=== PATIENT | female | born 2000 | race Caucasian/White ===

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

== ENCOUNTER 2020-11-06 01:35 | Emergency (ER) | payer BC, OTHER ==
--- NOTE | 2020-11-06 02:09 | EDM.PDOC ---
ED HPI GENERAL MEDICAL PROBLEM - General Chief Complaint: ENT Problem Stated Complaint: Severe throat pain Time Seen by Provider: 11/06/20 01:50 Source of Information: Reports: Patient History Limitations: Reports: No Limitations - History of Present Illness INITIAL COMMENTS - FREE TEXT/NARRATIVE: Patient presents to the ED at 1:30 am for sore throat/ She states that she started to have a runny nose sore throat and nasal congestion two days ago. She took some over the counter mucinex for it. She thought it might be allergies as she gets those. SHe has been eating and drinking normally. 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 Tonight she was in bed and she felt that the throat was becoming more sore. No fevers, and still able to swallow. Did not take anything for the pain because she did not have anything. living locally this summer but attends college here. Had covid in May, no vaccinations. presents afebrile with a friend for sore throat Onset Date: 11/03/20 Duration: Constant Location: Reports: Neck Quality: Reports: Ache Severity: Moderate Improves with: Reports: None Worsens with: Reports: None Associated Symptoms: Reports: Other (runny and stuffy nose) Treatments [employer]: Reports: Other (see below) (none today) Other Treatments [employer]: Mucinex, yesterday throat Pain Score (Numeric/FACES): 6 - Related Data Allergies Allergy/AdvReac Type Severity Reaction Status Date / Time No Known Allergies Allergy Verified 11/06/20 01:54 Home Meds: Home Meds Spironolactone 50 mg PO BID 11/06/20 [History] Past Medical History - Past Health History Medical/Surgical History: Denies Medical/Surgical History Social & Family History - Tobacco Use Tobacco Use Status *Q: Never Tobacco User Tobacco Use Within Last Twelve Months: No - Recreational Drug Use Recreational Drug Use: No Drug Use in Last 12 Months: No ED ROS ENT - Review of Systems Review Of Systems: See Below Constitutional: Denies: Fever, Chills, Weakness, Fatigue, Decreased Appetite HEENT: Reports: Rhinitis, Throat Pain, Throat Swelling. Denies: Ear Discharge, Ear Pain, Eye Discharge, Eye Pain, Nosebleed, Nose Pain, Sinus Problem Respiratory: Reports: No Symptoms. Denies: Shortness of Breath, Cough Cardiovascular: Reports: No Symptoms. Denies: Chest Pain, Claudication, Dyspnea on Exertion Endocrine: Reports: No Symptoms GI/Abdominal: Reports: No Symptoms. Denies: Abdominal Pain, Anorexia, Diarrhea, Decreased Appetite, Nausea, Vomiting : Reports: No Symptoms. Denies: Discharge, Dysuria, Frequency Musculoskeletal: Reports: No Symptoms Skin: Reports: No Symptoms ED EXAM, ENT - Physical Exam Exam: See Below Exam Limited By: No Limitations General Appearance: Alert, WD/WN, No Apparent Distress Eye Exam: Bilateral Eye: EOMI, Normal Inspection, PERRL Ears: Normal External Exam, Normal Canal, Hearing Grossly Normal, Normal TMs. No: TM Bulging, TM Dullness, TM Erythema Nose: Clear Rhinorrhea, Other (mucosal swelling, no sinus tenderness to palpation over the frontal or maxillary sinuses). No: Nasal Tenderness Mouth/Throat: Normal Inspection, Normal Gums, Normal Teeth, Pharyngeal Erythema. No: Dry Mucous Membrane, Throat Swelling, Tongue Swelling, Tonsillar Exudates, Tonsillar Swelling, Uvular Deviation, Uvular Edema Head: Atraumatic Neck: Supple, Full Range of Motion, Lymphadenopathy (L), Lymphadenopathy (R) Respiratory/Chest: No Respiratory Distress, Lungs Clear, Normal Breath Sounds Cardiovascular: Normal Peripheral Pulses, Regular Rate, Rhythm, No Murmur Back: Normal Inspection, Full Range of Motion. No: CVA Tenderness (L), CVA Tenderness (R) Extremities: Normal Inspection, Normal Range of Motion, No Pedal Edema Neurological: Alert, Oriented, CN II-XII Intact Course - Vital Signs Last Recorded V/S: Last Vital Signs Temp 36.8 C 11/06/20 01:35 Pulse 86 11/06/20 01:35 Resp 16 11/06/20 01:35 BP 110/73 11/06/20 01:35 Pulse Ox - Orders/Labs/Meds Orders: Active Orders 24 hr Category Date Time Status STREP A BY PCR [[facility]] Stat Lab 11/06/20 02:01 Ordered - Re-Assessments/Exams Free Text/Narrative Re-Assessment/Exam: 11/06/20 02:22 Patient has minimal erythema. will check a strep swab due to her job. 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 Advised on purchasing and use of tylenol, motrin, sudafed, allergy medication, mucinex and nasocort. Departure - Departure Time of Disposition: 02:37 Disposition: Home, Self-Care 01 Condition: Good Clinical Impression: Pharyngitis, Upper respiratory infection, viral - Discharge Information *PRESCRIPTION DRUG MONITORING PROGRAM REVIEWED*: Not Applicable *COPY OF PRESCRIPTION DRUG MONITORING REPORT IN PATIENT ANABEL: Not Applicable Instructions: Viral Respiratory Infection, [id number], Sore Throat, [id number] Additional Instructions: Strep screen is negatiave. sore throat, runny nose and nasal congestion are likely due to a viral infection and conversative and symptomatic care are indicated. Working in childcare will expose you to many different virus and cause you to have symptoms such as runny nose, cough, body aches, headaches, sore throat and fevers. Over the counter treatments to help these things are important as symptom control. Purchase and use tylenol ( acetominophen), motrin ( ibuprofen) for pain, flonase or nasocort nasal spray for runny and or stuffy nose, mucinex or sudafed for nasal congestion. Drink plenty of fluids and consider establishing with primary care in [facility] for follow up and routine visits. Sepsis Event Note (ED) - Evaluation Sepsis Screening Result: No Definite Risk - Focused Exam Vital Signs: Vital Signs Temp Pulse Resp BP 11/06/20 01:35 36.8 C 86 16 110/73 - My Orders Last 24 Hours: My Active Orders 11/06/20 02:01 STREP A BY PCR [[facility]] Stat - Assessment/Plan Last 24 Hours: My Active Orders 11/06/20 02:01 STREP A BY PCR [[facility]] Stat
== END 2020-11-06 02:43 | disposition home or self-care (01) ==
LOC: VM.ED 01:35
DX: J02.9 Acute pharyngitis, unspecified (principal)
CPT/HCPCS: 87651-QW; 99283